=== PATIENT | male | born 2000 | race Caucasian/White ===

== ENCOUNTER 2019-06-05 17:55 | Emergency (ER) | payer OTHER, SELFPAY ==
[2019-06-05 18:00] VITALS: BP 154/89; PULSE 89; RESP 20; TEMP 36.8; O2SAT 100
--- NOTE | 2019-06-05 18:17 | ED.ANXIETY ---
HPI - Anxiety General Chief Complaint: Anxiety Stated Complaint: pos anxiety/chest pain History of Present Illness HPI narrative: This is a 19-year-old male that comes in with some anxiety and some stress states that he got high of some marijuana and he just nervous. Patient states that he is normally high strung but lately when he gets high he gets really anxious and nervous he does not really know what to do. Patient sister came with him because she says that he is really having more anxiety than normally patient denies any suicidal or homicidal ideations Related Data Allergies Allergy/AdvReac Type Severity Reaction Status Date / Time No Known Allergies Allergy Verified 06/05/19 18:19 Review of Systems Review of Systems: Narrative: CONSTITUTIONAL: Denies fever, chills, or sweats. EYES: Denies visual changes, redness, or discharge. ENT: Denies rhinorrhea, congestion, sore throat, or otalgia. CARDIOVASCULAR:Denies chest pain, palpitations, or edema. RESPIRATORY: Denies cough or dyspnea. GASTROINTESTINAL: Denies abdominal pain, nausea, vomiting, or diarrhea. GENITOURINARY: Denies dysuria or hematuria. SKIN:[Denies rash or itching. MUSCULOSKELETAL:Denies back pain, joint pain, or myalgia. NEUROLOGIC: Denies headache, numbness, or weakness. PSYCHIATRIC:reports anxiety or depression Reports PMFSH Comments At time as signature, I have reviewed and agree with nursing past medical, social, surgical and family history. Please see nursing chart for further information. There is no relevant family history pertinent to the presenting complaint. Exam Narrative: Exam Narrative: GENERAL:Well-appearing, well-nourished, and in no acute distress. HEAD:Normocephalic, atraumatic. EYES: PERRLA and EOMI. ENT: Nares clear, no rhinorrhea or epistaxis. Mucous membranes moist. NECK: Supple. CHEST: Clear to auscultation. No respiratory distress. HEART: Regular rate and rhythm. No murmur heard. Normal peripheral pulses. ABDOMEN: Soft, nontender, nondistended, normal active bowel sounds. EXTREMITIES: Normal range of motion. No edema. SKIN: Warm, dry, no rash. NEURO: No focal deficits. Alert and oriented x3. Patient very anxious has come to his self Long discussion with patient explained to him that he probably should quit getting high for causes him to have all of this anxiety patient also needs to follow-up with his primary care provider possibly find a psychiatrist or counselor. Course Vital Signs Vital signs: Vital Signs Temperature 98.3 F 06/05/19 18:00 Pulse Rate 89 06/05/19 18:00 Respiratory Rate 20 06/05/19 18:00 Blood Pressure 154/89 H 06/05/19 18:00 Pulse Oximetry 100 06/05/19 18:00 Temperature 98.3 F 06/05/19 18:00 Pulse Rate 89 06/05/19 18:00 Respiratory Rate 20 06/05/19 18:00 Blood Pressure 154/89 H 06/05/19 18:00 Pulse Oximetry 100 06/05/19 18:00 Discharge Plan Discharge Clinical Impression: Acute anxiety, Hyperventilation Patient Disposition: Home, Self-Care Condition: Stable Instructions: Antibiotic Form, Anxiety (ED) Additional Instructions: alk to someone about your anxiety. Your healthcare provider may suggest counseling. Cognitive behavioral therapy can help you understand and change how you react to events that trigger your symptoms. You might feel more comfortable talking with a friend or family member about your anxiety. Choose someone you know will be supportive and encouraging. Find ways to relax. Activities such as exercise, meditation, or listening to music can help you relax. Spend time with friends, or do things you enjoy. Practice deep breathing. Deep breathing can help you relax when you feel anxious. Focus on taking slow, deep breaths several times a day, or during an anxiety attack. Breathe in through your nose and out through your mouth. Create a regular sleep routine. Regular sleep can help you feel calmer during the day. Go to sleep and wake up at the same jet
== END 2019-06-05 18:53 | disposition home or self-care (01) ==
PROVIDERS: Emergency Provider Nurse Practitioner Family
DX: F41.9 Anxiety disorder, unspecified (principal); R06.4 Hyperventilation
CPT/HCPCS: 99213; G0463